=== PATIENT | female | born 1955 | race Caucasian/White ===

== ENCOUNTER 2021-09-27 14:23 | Outpatient (CLI) | payer MEDICARE | END 2021-09-27 14:24 | disposition home or self-care (01) | LOC: CSHULT 14:23 | PROVIDERS: ATTEND Family Medicine | DX: N18.2 Chronic kidney disease, stage 2 (mild) (principal); Q63.2 Ectopic kidney; N27.0 Small kidney, unilateral | CPT/HCPCS: 76770 ==

== ENCOUNTER 2024-03-28 11:27 | Outpatient (CLI) | payer OTHER | END 2024-03-28 11:28 | disposition home or self-care (01) | LOC: CSHMAMMO 11:27 | PROVIDERS: ATTEND Family Medicine | DX: Z12.31 Encounter for screening mammogram for malignant neoplasm of breast (principal) | CPT/HCPCS: 77063; 77067 ==